=== PATIENT | male | born 1955 | race American Indian/Alaskan Native ===

== ENCOUNTER 2016-10-09 13:23 | Emergency (ER) | payer MEDICAID ==
[2016-10-09 14:43] LABS: Eosinophils % (Auto) 1.6 % (0.0-4.3); Hematocrit 53.7 % (35.5-45.6); Hemoglobin 17.8 gm/dl (11.8-15.2); Mean Corpuscular HGB Conc 33 % (32-34); Mean Corpuscular Hemoglobin 33 pg (28-32); Mean Corpuscular Volume 99 fl (84-94); Platelet Count 194 K/mm3 (140-440); Red Blood Count 5.42 M/mm3 (3.65-5.03); Red Cell Distribution Width 13.6 % (13.2-15.2); White Blood Count 5.5 K/mm3 (4.5-11.0)
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
[2016-10-09 14:58] LABS: BUN/Creatinine Ratio 9.23; Blood Urea Nitrogen 12 mg/dL (9-20); Calcium 8.6 mg/dL (8.4-10.2); Carbon Dioxide 26 mmol/L (22-30); Glucose 54 mg/dL (75-100)
[2016-10-09 14:59] LABS: Anion Gap 16 mmol/L; Chloride 102.8 mmol/L (98-107); Potassium 4.7 mmol/L (3.6-5.0); Sodium 140 mmol/L (137-145)
[2016-10-09 18:13] LABS: Bilirubin,Urine NEG (Negative); Blood,Urine NEG (Negative); Ketones,Urine NEG (Negative); Leukocyte Esterase,Urine NEG (Negative); Mucus,Urine FEW /HPF; Nitrite,Urine NEG (Negative); Protein,Urine <15 mg/dL mg/dL (Negative); WBC,Urine < 1.0 /HPF (0.0-6.0)
[2016-10-09] MEDS ORDERED: TORADOL IM ONE (21:06)
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
[2016-10-09 22:07] VITALS: BP 124/76
== END 2016-10-09 22:04 | disposition home or self-care (01) ==
LOC: ED 13:23
DX: S20.219A Contusion of unspecified front wall of thorax, initial encounter (principal); L98.9 Disorder of the skin and subcutaneous tissue, unspecified; F20.9 Schizophrenia, unspecified; F17.200 Nicotine dependence, unspecified, uncomplicated; Z88.0 Allergy status to penicillin; W22.8XXA Striking against or struck by other objects, initial encounter; Y93.89 Activity, other specified; Y99.9 Unspecified external cause status; Y92.89 Other specified places as the place of occurrence of the external cause
CPT/HCPCS: 36415; 71020; 80048; 81001; 84484; 85025; 93005; 93010; 96372; 99285; J1885

== ENCOUNTER 2019-05-31 19:37 | Emergency (ER) | payer MEDICAID ==
[2019-05-31 20:39] VITALS: BP 129/77
--- NOTE | 2019-05-31 21:27 | Event Note ---
ED Screening Note Date of service: 05/31/19 Time: 21:24 ED Screening Note: 64 y male presents with back pain and right [place] pain s/p slip and fall today in front of his house no head injury or loc This initial assessment/diagnostic orders/clinical plan/treatment(s) is/are subject to change based on patients health status, clinical progression and re- assessment by fellow clinical providers in the ED. Further treatment and workup at subsequent clinical providers discretion. Patient/guardian urged not to elope from the ED as their condition may be serious if not clinically assessed and managed. Initial orders include: xr lumbar/sacral coccyx
--- NOTE | 2019-05-31 22:23 | XRay Report ---
LUMBAR SPINE HISTORY: Pain COMPARISON: None. TECHNIQUE: 3 view(s) of the lumbar spine obtained. FINDINGS: Vertebrae: Normal alignment. No displaced fracture or significant abnormality. Disc Spaces:Mild to moderate degenerative disc disease at L5-S1. Remaining disc spaces are relatively preserved. Facet Joints:Mild facet hypertrophy in the lower lumbar spine. Additional findings: None. IMPRESSION: 1. No acute abnormality of the lumbar spine. Signer Name: Aliza Last MD Signed: 05/31/2019 10:19 PM Workstation Name: [id number]
--- NOTE | 2019-05-31 22:26 | XRay Report ---
XR SACRUM/COCCYX 3 VIEWS INDICATION / CLINICAL INFORMATION: pain COMPARISON: None available. FINDINGS: BONES / JOINT(S): No acute displaced fracture or subluxation. Moderate degenerative disc disease at L 5-S1. SOFT TISSUES: No significant abnormality. ADDITIONAL FINDINGS: None. Signer Name: Aliza Last MD Signed: 05/31/2019 10:22 PM Workstation Name: [id number]
[2019-06-01] MEDS ORDERED: HYDROcodone/ACETAMINOPHEN 5-325 MG TAB PO ONE (02:04)
--- NOTE | 2019-06-01 02:32 | Emergency Department Report ---
ED Fall HPI - General Chief Complaint: Fall Stated Complaint: LOWER BACK PAIN, RIGHT SHOULDER PAIN Time Seen by Provider: 06/01/19 02:03 Source: patient Mode of arrival: Wheelchair - History of Present Illness Initial Comments: Mr. Yang is a 64 y male with a history of chronic back pain who presents with back pain and right shoulder pain s/p slip and fall today in front of his house. He denies head injury, neck pain, or loc. Patient remains alert oriented x3. Patient is ambulatory with steady gait. States 5/10 back pain described as aching. This pain is exacerbated by bending and twisting. His pain is relieved by nothing tried. Patient arrived tonight by POV and family member under his own power with steady gait. MD Complaint: fall Onset/Timin -: hour(s) Fall From: standing When Fall Occurred: other (12 hrs ) Fall Witnessed: no Place Fall Occurred: home Loss of Consciousness: none Prolonged Down Time?: no Symptoms Prior to Fall: none Location: back Location - Extremities: Right: Shoulder Severity: moderate Severity scale (0 -10): 6 Quality: aching Context: tripped/slipped Associated Symptoms: denies: headache, neck pain, numbness, weakness, chest paint, shortness of breath, abdominal pain, hematuria, lightheaded, vertigo, confusion - Related Data Previous Rx's Medication Instructions Recorded Last Taken Type HYDROcodone/APAP 5-325 [[place] 1 each PO Q6HR PRN #15 tablet 10/09/16 Unknown Rx 5/325] Ibuprofen [Motrin] 800 mg PO Q8HR PRN #30 tablet 10/09/16 Unknown Rx Clindamycin [Clindamycin CAP] 300 mg PO Q6H #40 capsule 01/23/17 Unknown Rx Naproxen [Naprosyn TAB] 500 mg PO BID PRN #30 tablet 01/23/17 Unknown Rx Sulfamethoxazole/Trimethoprim 1 each PO BID #20 tablet 01/23/17 Unknown Rx [Bactrim DS TAB] Acetaminophen [Acetaminophen TAB] 1,000 mg PO Q6HR PRN #60 tablet 06/01/19 Unknown Rx Diclofenac 1% [Diclofenac 1% 1 applicatio TP QID PRN #1 tube 06/01/19 Unknown Rx topical gel] traMADoL [Ultram] 50 mg PO Q6HR PRN #132 tablet 06/01/19 Unknown Rx Allergies Allergy/AdvReac Type Severity Reaction Status Date / Time Penicillins Allergy Rash Verified 01/22/17 19:48 ED Review of Systems ROS: Stated complaint: LOWER BACK PAIN, RIGHT SHOULDER PAIN Other details as noted in HPI Constitutional: denies: chills, fever Eyes: denies: eye pain, eye discharge, vision change ENT: denies: ear pain, throat pain Respiratory: denies: cough, shortness of breath, wheezing Cardiovascular: denies: chest pain, palpitations Endocrine: no symptoms reported Gastrointestinal: denies: abdominal pain, nausea, diarrhea Genitourinary: denies: urgency, dysuria Musculoskeletal: back pain, arthralgia, other (right shoulder ) Skin: denies: rash, lesions Neurological: denies: headache, weakness, paresthesias Psychiatric: denies: anxiety, depression Hematological/Lymphatic: denies: easy bleeding, easy bruising ED Past Medical Hx - Past Medical History Hx Psychiatric Treatment: Yes (schizophrenia) - Surgical History Hx Appendectomy: Yes Additional Surgical History: nasal repair - Social History Smoking Status: Never Smoker Substance Use Type: None - Medications Home Medications: Home Medications Medication Instructions Recorded Confirmed Last Taken Type HYDROcodone/APAP 5-325 [[place] 1 each PO Q6HR PRN #15 tablet 10/09/16 Unknown Rx 5/325] Ibuprofen [Motrin] 800 mg PO Q8HR PRN #30 tablet 10/09/16 Unknown Rx Clindamycin [Clindamycin CAP] 300 mg PO Q6H #40 capsule 01/23/17 Unknown Rx Naproxen [Naprosyn TAB] 500 mg PO BID PRN #30 tablet 01/23/17 Unknown Rx Sulfamethoxazole/Trimethoprim 1 each PO BID #20 tablet 01/23/17 Unknown Rx [Bactrim DS TAB] Acetaminophen [Acetaminophen TAB] 1,000 mg PO Q6HR PRN #60 tablet 06/01/19 Unknown Rx Diclofenac 1% [Diclofenac 1% 1 applicatio TP QID PRN #1 tube 06/01/19 Unknown Rx topical gel] traMADoL [Ultram] 50 mg PO Q6HR PRN #132 tablet 06/01/19 Unknown Rx ED Physical Exam - General Limitations: No Limitations General appearance: alert, in no apparent distress - Head Head exam: Present: normocephalic, normal inspection - Expanded Head Exam Expanded Head exam: Absent: contusion, hematoma - Eye Eye exam: Present: normal appearance, PERRL, EOMI. Absent: conjunctival injection, nystagmus Pupils: Present: normal accommodation - ENT ENT exam: Present: normal orophraynx, mucous membranes moist, TM's normal bilaterally, normal external ear exam - Neck Neck exam: Present: normal inspection, full ROM. Absent: tenderness, meningismus, lymphadenopathy, thyromegaly - Expanded Neck Exam Expanded Neck exam: Absent: tenderness, midline deformity, anterior neck swelling, thyroid mass, carotid bruit, tracheal deviation - Respiratory Respiratory exam: Present: normal lung sounds bilaterally. Absent: respiratory distress, wheezes, stridor, chest wall tenderness - Cardiovascular Cardiovascular Exam: Present: regular rate, normal rhythm, normal heart sounds. Absent: systolic murmur, diastolic murmur, rubs, gallop - GI/Abdominal GI/Abdominal exam: Present: soft, normal bowel sounds. Absent: distended, tenderness, guarding, rebound, rigid, bruit, hernia - Rectal Rectal exam: Present: deferred - Extremities Exam Extremities exam: Present: full ROM, tenderness (right lateral shoulder pain ), normal capillary refill. Absent: joint swelling - Expanded Upper Extremity Exam Right Shoulder Exam: Present: tenderness, tenderness over AC joint. Absent: full ROM (rom restricted by pain ), swelling, abrasion, laceration, ecchymosis, deformity, crepidus, dislocation, erythema Upper Arm exam: Present: normal inspection, full ROM. Absent: tenderness Elbow exam: Present: normal inspection, full ROM. Absent: tenderness Forearm Wrist exam: Present: normal inspection, full ROM. Absent: tenderness Hand Wrist exam: Present: normal inspection, full ROM. Absent: tenderness Neuro motor exam: Present: wrist extension intact, thumb opposition intact, thumb IP flexion intact, thumb adduction intact, fingers 2-5 abduction intact Neurosensory exam: Present: radial nerve intact Vascular: Present: normal capillary refill - Back Exam Back exam: Present: normal inspection, full ROM, tenderness, muscle spasm, paraspinal tenderness. Absent: CVA tenderness (R), CVA tenderness (L), vertebral tenderness, rash noted - Expanded Back Exam Expanded Back exam: Absent: saddle anesthesia Back exam: Positive Straight Leg Raise: Left, Right - Neurological Exam Neurological exam: Present: alert, oriented X3, CN II-XII intact, normal gait, reflexes normal. Absent: motor sensory deficit - Expanded Neurological Exam Expanded Patient oriented to: Present: person, place, time Speech: Present: fluid speech Motor strength exam: RUE: 5, LUE: 5, RLE: 5, LLE: 5 Best Eye Response ([place]): (4) open spontaneously Best Motor Response ([place]): (6) obeys commands Best Verbal Response ([place]): (5) oriented [place] Total: 15 - Psychiatric Psychiatric exam: Present: normal affect, normal mood - Skin Skin exam: Present: warm, dry, intact, normal color. Absent: rash ED Course Vital Signs 05/31/19 20:09 Temperature 98.8 F Pulse Rate 66 Respiratory 18 Rate Blood Pressure 129/77 O2 Sat by Pulse 96 Oximetry ED Medical Decision Making - Radiology Data Radiology results: report reviewed, image reviewed Findings Reporting MD: Aliza Last Dictation Time: May 31, 2019 21:19 Library Customer Service Clerk: Not available [employer] Consultant Date: LUMBAR SPINE HISTORY: Pain COMPARISON: None. TECHNIQUE: 3 view(s) of the lumbar spine obtained. FINDINGS: Vertebrae: Normal alignment. No displaced fracture or significant abnormality. Disc Spaces:Mild to moderate degenerative disc disease at L5-S1. Remaining disc spaces are relatively preserved. Facet Joints:Mild facet hypertrophy in the lower lumbar spine. Additional findings: None. IMPRESSION: 1. No acute abnormality of the lumbar spine. Signer Name: Aliza Last MD Signed: 05/31/2019 9:19 PM Workstation Name: [email or web address] Findings Reporting MD: Aliza Last Dictation Time: May 31, 2019 21:22 Library Customer Service Clerk: Not available [employer] Consultant Date: XR SACRUM/COCCYX 3 VIEWS INDICATION / CLINICAL INFORMATION: pain COMPARISON: None available. FINDINGS: BONES / JOINT(S): No acute displaced fracture or subluxation. Moderate degenerative disc disease at L5-S1. SOFT TISSUES: No significant abnormality. ADDITIONAL FINDINGS: None. Signer Name: Aliza Last MD Signed: 05/31/2019 9:22 PM Workstation Name: [id number] - Medical Decision Making Lumbar and coccyx xrays neg for fracture, noted DDD, right shoulder no fracture no soft tissue injury. plan: Tylenol, Diclofenac gel, ultram, follow up with orthopedics. pt verbalized agreement and understanding of discharge plan. Critical care attestation.: If time is entered above; I have spent that time in minutes in the direct care of this critically ill patient, excluding procedure time. ED Disposition Clinical Impression: Fall Qualifiers: Encounter type: initial encounter Qualified Code(s): W19.XXXA - Unspecified fall, initial encounter Low back strain Qualifiers: Encounter type: initial encounter Qualified Code(s): S39.012A - Strain of muscle, fascia and tendon of lower back, initial encounter Coccyx sprain Qualifiers: Encounter type: initial encounter Qualified Code(s): S33.8XXA - Sprain of other parts of lumbar spine and pelvis, initial encounter Shoulder sprain Qualifiers: Encounter type: initial encounter Shoulder sprain type: unspecified sprain Laterality: right Qualified Code(s): S43.401A - Unspecified sprain of right shoulder joint, initial encounter Disposition: TO HOME OR SELFCARE Is pt being admited?: No Does the pt Need Aspirin: No Condition: Stable Instructions: Coccyx Injury (ED), Low Back Strain (ED), Shoulder Sprain (ED) Prescriptions: Acetaminophen [Acetaminophen TAB] 1,000 mg PO Q6HR PRN #60 tablet PRN Reason: pain Diclofenac 1% [Diclofenac 1% topical gel] 1 applicatio TP QID PRN #1 tube PRN Reason: pain traMADoL [Ultram] 50 mg PO Q6HR PRN #132 tablet PRN Reason: Pain Referrals: BRENNAN WIGGINS MD [Staff Physician] - 3-5 Days Forms: Work/School Release Form(ED) Time of Disposition: 03:21
--- NOTE | 2019-06-01 03:30 | XRay Report ---
Right shoulder, 3 views INDICATION: Pain following fall tonight FINDINGS: There are slight degenerative changes but no fracture or dislocation. The humeral head is s omewhat high in position raising the possibility of rotator cuff tear. No acute skeletal abnormality however. Signer Name: Tigre Medrano MD Signed: 06/01/2019 3:26 AM Workstation Name: [id number]
== END 2019-06-01 03:27 | disposition home or self-care (01) ==
LOC: ED 19:37
DX: S39.012A Strain of muscle, fascia and tendon of lower back, initial encounter (principal); S43.401A Unspecified sprain of right shoulder joint, initial encounter; S33.8XXA Sprain of other parts of lumbar spine and pelvis, initial encounter; F20.9 Schizophrenia, unspecified; Z88.0 Allergy status to penicillin; Z79.899 Other long term (current) drug therapy; Z90.49 Acquired absence of other specified parts of digestive tract; Z98.890 Other specified postprocedural states; W01.0XXA Fall on same level from slipping, tripping and stumbling without subsequent striking against object, initial encounter; Y93.89 Activity, other specified; Y92.099 Unspecified place in other non-institutional residence as the place of occurrence of the external cause; Y99.8 Other external cause status
CPT/HCPCS: 72100; 72220; 99283

== ENCOUNTER 2019-12-28 00:27 | Emergency (ER) | payer MEDICAID ==
--- NOTE | 2019-12-28 03:29 | XRay Report ---
LEFT WRIST 3 VIEWS INDICATION / CLINICAL INFORMATION: pain. COMPARISON: None available. FINDINGS: BONES/JOINT(S): No acute fracture or subluxation. There is diffuse heterogeneous osteopenia throughou t the carpus with joint space loss. These findings could be seen in the setting of rheumatoid arthrit is. SOFT TISSUES: No significant abnormality. ADDITIONAL FINDINGS: None. Signer Name: Niall Patel MD Signed: 12/28/2019 3:24 AM Workstation Name: [email or web address]
--- NOTE | 2019-12-28 04:49 | Emergency Department Report ---
ED General Adult HPI - General Chief complaint: Earache Stated complaint: LT HAND/LT EAR PAIN Time Seen by Provider: 12/28/19 04:12 Source: patient Mode of arrival: Ambulatory Limitations: No Limitations - History of Present Illness Initial comments: 64-year-old -[place] male patient presents with complaints of left wrist pain and left ear pain x1 month. He denies any injury to the wrist and rates his overall pain as a 7/10 in severity. [facility] and is [facility]ad[facility] for his pain. He denies any feve r/chills/sweats, trauma to the left ear, or bloody drainage from the ear. He states there is mild decreased hearing in the left ear - Related Data Previous Rx's Medication Instructions Recorded Last Taken Type HYDROcodone/APAP 5-325 [Aurora 1 each PO Q6HR PRN #15 tablet 10/09/16 Unknown Rx 5/325] Ibuprofen [Motrin] 800 mg PO Q8HR PRN #30 tablet 10/09/16 Unknown Rx Clindamycin [Clindamycin CAP] 300 mg PO Q6H #40 capsule 01/23/17 Unknown Rx Naproxen [Naprosyn TAB] 500 mg PO BID PRN #30 tablet 01/23/17 Unknown Rx Sulfamethoxazole/Trimethoprim 1 each PO BID #20 tablet 01/23/17 Unknown Rx [Bactrim DS TAB] Acetaminophen [Acetaminophen TAB] 1,000 mg PO Q6HR PRN #60 tablet 06/01/19 Unknown Rx Diclofenac 1% [Diclofenac 1% 1 applicatio TP QID PRN #1 tube 06/01/19 Unknown Rx topical gel] traMADoL [Ultram] 50 mg PO Q6HR PRN #132 tablet 06/01/19 Unknown Rx Diclofenac Sodium 50 mg PO TID PRN #21 tablet. 12/28/19 Unknown Rx Ofloxacin 0.3% [Floxin 0.3% Otic] 10 drops OT QDAY 10 Days #1 bottle 12/28/19 Unknown Rx Allergies Allergy/AdvReac Type Severity Reaction Status Date / Time Penicillins Allergy Rash Verified 01/22/17 19:48 ED Review of Systems ROS: Stated complaint: LT HAND/LT EAR PAIN Other details as noted in HPI Constitutional: denies: chills, diaphoresis, fever, malaise, weakness ENT: hearing loss Respiratory: denies: cough, shortness of breath Cardiovascular: denies: chest pain Gastrointestinal: denies: nausea, vomiting Musculoskeletal: arthralgia. denies: joint swelling Skin: denies: change in color Neurological: denies: headache Hematological/Lymphatic: denies: swollen glands ED Past Medical Hx - Past Medical History Hx Psychiatric Treatment: Yes (schizophrenia) - Surgical History Hx Appendectomy: Yes Additional Surgical History: nasal repair - Social History Smoking Status: Current Every Day Smoker Substance Use Type: Alcohol - Medications Home Medications: Home Medications Medication Instructions Recorded Confirmed Last Taken Type HYDROcodone/APAP 5-325 [Aurora 1 each PO Q6HR PRN #15 tablet 10/09/16 Unknown Rx 5/325] Ibuprofen [Motrin] 800 mg PO Q8HR PRN #30 tablet 10/09/16 Unknown Rx Clindamycin [Clindamycin CAP] 300 mg PO Q6H #40 capsule 01/23/17 Unknown Rx Naproxen [Naprosyn TAB] 500 mg PO BID PRN #30 tablet 01/23/17 Unknown Rx Sulfamethoxazole/Trimethoprim 1 each PO BID #20 tablet 01/23/17 Unknown Rx [Bactrim DS TAB] Acetaminophen [Acetaminophen TAB] 1,000 mg PO Q6HR PRN #60 tablet 06/01/19 Unknown Rx Diclofenac 1% [Diclofenac 1% 1 applicatio TP QID PRN #1 tube 06/01/19 Unknown Rx topical gel] traMADoL [Ultram] 50 mg PO Q6HR PRN #132 tablet 06/01/19 Unknown Rx Diclofenac Sodium 50 mg PO TID PRN #21 tablet.dr 12/28/19 Unknown Rx Ofloxacin 0.3% [Floxin 0.3% Otic] 10 drops OT QDAY 10 Days #1 bottle 12/28/19 Unknown Rx ED Physical Exam - General Limitations: No Limitations General appearance: alert, in no apparent distress - Head Head exam: Present: atraumatic, normocephalic - Eye Eye exam: Present: normal appearance. Absent: scleral icterus - ENT ENT exam: Present: mucous membranes moist - Expanded ENT Exam Expanded TM/Canal exam: Canal Discharge: Left TM (No bulging or erythema of the TM noted), Canal Tenderness: Left TM - Neck Neck exam: Present: normal inspection - Respiratory Respiratory exam: Present: normal lung sounds bilaterally. Absent: respiratory distress - Cardiovascular Cardiovascular Exam: Present: regular rate, normal rhythm. Absent: systolic murmur, diastolic murmur, rubs, gallop - Extremities Exam Extremities exam: Present: tenderness (Mild tenderness to palpation of the left wrist noted without swelling, erythema, or deformity. Normal ulnar radial pulses noted with normal perfusion into the fingers and normal sensation and range of motion of the hand and wrist) - Back Exam Back exam: Present: normal inspection - Neurological Exam Neurological exam: Present: alert, oriented X3 - Psychiatric Psychiatric exam: Present: normal affect, normal mood - Skin Skin exam: Present: warm, dry, intact, normal color. Absent: rash, cyanosis, ecchymosis ED Course Vital Signs 12/28/19 00:42 Temperature 97.9 F Pulse Rate 88 Respiratory 17 Rate Blood Pressure 100/69 O2 Sat by Pulse 96 Oximetry ED Medical Decision Making - Radiology Data Radiology results: report reviewed LEFT WRIST 3 VIEWS INDICATION / CLINICAL INFORMATION: pain. COMPARISON: None available. FINDINGS: BONES/JOINT(S): No acute fracture or subluxation. There is diffuse heterogeneous osteopenia throughout the carpus with joint space loss. These findings could be seen in the setting of rheumatoid arthritis. SOFT TISSUES: No significant abnormality. ADDITIONAL FINDINGS: None. - Medical Decision Making 64-year-old -[place] male patient presents with complaints of left wrist pain and left ear pain x1 month. He denies any injury to the wrist and rates his overall pain as a 7/10 in severity. He [facility] and is taking tramadol for his pain. He denies any fever/chill s/sweats, trauma to the left ear, or bloody drainage from the ear. He states there is mild decreased hearing in the left ear X-ray shows osteopenia that is likely consistent with rheumatoid arthritis. Otitis externa noted of left ear on exam. Prescription for diclofenac and ofloxacin given. [facility] 2 days for further assessment of osteopenia and possible rheumatoid arthritis. Vitals are normal, patient is well-appearing, he is stable for discharge home. Strict return precautions were discussed in detail with patient who verbalized understanding peer Critical care attestation.: If time is entered above; I have spent that time in minutes in the direct care of this critically ill patient, excluding procedure time. ED Disposition Clinical Impression: Osteopenia determined by x-ray Otitis externa, left Qualifiers: Otitis externa type: other infective Chronicity: acute Qualified Code(s): H60.392 - Other infective otitis externa, left ear Disposition: DC-01 TO HOME OR SELFCARE Is pt being admited?: No Condition: Stable Instructions: Arthralgia (ED), Rheumatoid Arthritis (ED), Otitis Externa (ED) Prescriptions: Diclofenac Sodium 50 mg PO TID PRN #21 tablet. PRN Reason: pain Ofloxacin 0.3% [Floxin 0.3% Otic] 10 drops OT QDAY 10 Days #1 bottle Referrals: PRIMARY CARE, [Primary Care Provider] - 2-3 Days (osteopenia, wrist pain )
[2019-12-28] MEDS ORDERED: IBUPROFEN 800 MG TAB PO ONE (04:58)
[2019-12-28 05:25] VITALS: BP 132/71
== END 2019-12-28 05:23 | disposition home or self-care (01) ==
LOC: ED 00:27
DX: H60.92 Unspecified otitis externa, left ear (principal); M85.88 Other specified disorders of bone density and structure, other site; F20.9 Schizophrenia, unspecified; F17.200 Nicotine dependence, unspecified, uncomplicated; Z90.49 Acquired absence of other specified parts of digestive tract; Z98.890 Other specified postprocedural states; Z79.1 Long term (current) use of non-steroidal anti-inflammatories (NSAID); Z79.2 Long term (current) use of antibiotics; Z79.899 Other long term (current) drug therapy; Z88.0 Allergy status to penicillin